=== PATIENT | male | born 1980 | race American Indian/Alaskan Native ===

== ENCOUNTER 2016-09-03 20:11 | Emergency (ER) | payer MEDICAID ==
--- NOTE | 2016-09-04 02:32 | Emergency Department Report ---
HPI - General Chief Complaint: Upper Respiratory Infection Time Seen by Provider: 09/04/16 01:56 - HPI HPI: Patient complaining of nonproductive cough times one month. He reports that these have been drainage in the back of his throat, nasal congestion and sinus pressure. Patient has a history of high blood pressure but he said he doesn't remember what his blood pressure medication but he takes it every day and he does not need a refill. Denies any fever, chest pain or shortness of breath. Denies any nausea or vomiting. Denies any sore throat. Reports that his ears feel clogged. No Feen-tcd-iwbykgl medication taken. ED Past Medical Hx - Past Medical History Previous Medical History?: Yes Hx Hypertension: Yes Hx Diabetes: Yes Additional medical history: LT arm fx - Surgical History Past Surgical History?: No - Family History Family history: hypertension - Social History Smoking Status: Current Every Day Smoker Substance Use Type: None - Medications Home Medications: Home Medications Medication Instructions Recorded Confirmed Last Taken Type Amoxicillin/K Clav Tab [Augmentin 1 tab PO Q12HR #20 tab 09/04/16 Unknown Rx 875 mg] Cetirizine HCl [ZyrTEC] 10 mg PO QAM #14 capsule 09/04/16 Unknown Rx Fluticasone [Flonase] 1 spray NS QDAY #1 bottle 09/04/16 Unknown Rx guaiFENesin/CODEINE [Robitussin AC] 10 ml PO QHS PRN #70 ml 09/04/16 Unknown Rx predniSONE [Deltasone] 50 mg PO QDAY #3 tab 09/04/16 Unknown Rx ED Review of Systems ROS: Stated complaint: COUGH Other details as noted in HPI Comment: All other systems reviewed and negative Constitutional: denies: chills, fever ENT: congestion. denies: ear pain, throat pain Respiratory: cough. denies: shortness of breath, SOB with exertion, SOB at rest , stridor, wheezing Cardiovascular: denies: chest pain, palpitations, edema, syncope Gastrointestinal: denies: abdominal pain, nausea, vomiting Musculoskeletal: denies: back pain, arthralgia, myalgia Skin: denies: rash Neurological: denies: headache, weakness, numbness, paresthesias, confusion, abnormal gait, vertigo Physical Exam - Physical Exam Vital Signs: Vital Signs 09/03/16 20:33 Temperature 98.6 F Pulse Rate 90 Respiratory 18 Rate Blood Pressure 128/80 O2 Sat by Pulse 100 Oximetry General: This is a 35-year-old male well-nourished well-developed in no acute distress and nontoxic in appearance. Physical Exam: Head: Normocephalic atraumatic Mouth: Moist, no pharyngeal exudate or erythema. Uvula is midline and oral airway is patent. No gingival enlargement or dental tenderness. No facial swelling. No peritonsillar abscesses. Neck: Supple, no C-spine tenderness, no tracheal deviation. Nontender to palpate. no adenopathy Ears: Bilateral TMs congested without erythema .bilateral EAC without any redness swelling or drainage Eyes: Bilateral pupils equal and reactive to light, bilateral EOM intact. Bilateral sclera and conjunctiva without injection. Normal accommodation Nose: Mucosa moist, positive congestion and erythema. Positive clear drainage. maxillary sinus tender to palpate. Lungs: clear to auscultate bilaterally no rhonchi wheezes or rales. Normal work of breathing . Dry cough extremity; No CCE. +2 pulses. No neurovascular compromise Cardiovascular: S1-S2, regular rate rhythm. No murmurs. Skin: clean Dry and intact no rash no lesions Psych: Normal mood and behavior ED Course Vital Signs 09/03/16 20:33 Temperature 98.6 F Pulse Rate 90 Respiratory 18 Rate Blood Pressure 128/80 O2 Sat by Pulse 100 Oximetry - Reevaluation(s) Reevaluation #1: 09/04/16 03:33 Patient stable throughout ED stay. ED Medical Decision Making - Radiology Data Radiology results: report reviewed Chest x-ray revealed no acute cardiopulmonary findings. - Medical Decision Making ED course: Patient with acute sinusitis and cough. I discussed the patient diagnosis and treatment plan and he voiced understanding. Pt discharged home to follow-up with his primary care physician in 2-3 days. I discussed with him that his chest x-ray results was negative for any acute findings. A shunt discharged home with prescription for prednisone, Flonase, Zyrtec, Augmentin and guaifenesin with codeine. Critical care attestation.: If time is entered above; I have spent that time in minutes in the direct care of this critically ill patient, excluding procedure time. ED Disposition Clinical Impression: Cough Acute sinusitis Qualifiers: Sinusitis location: maxillary Recurrence: not specified as recurrent Qualified Code(s): J01.00 - Acute maxillary sinusitis, unspecified Disposition: DISCHARGED TO HOME OR SELFCARE Is pt being admited?: No Does the pt Need Aspirin: No Condition: Stable Instructions: Acute Cough (ED), Sinusitis (ED) Additional Instructions: Please take medication as prescribed. Primary care physician in 3-[address] or operate heavy machinery while taking cough medicine. Prescriptions: guaiFENesin/CODEINE [Robitussin AC] 10 ml PO QHS PRN #70 ml PRN Reason: Cough Amoxicillin/K Clav Tab [Augmentin 875 mg] 1 tab PO Q12HR #20 tab Cetirizine HCl [ZyrTEC] 10 mg PO QAM #14 capsule Fluticasone [Flonase] 1 spray NS QDAY #1 bottle predniSONE [Deltasone] 50 mg PO QDAY #3 tab Referrals: PRIMARY CARE, [Primary Care Provider] - 2-3 Days Forms: Work/School Release Form(ED)
--- NOTE | 2016-09-04 03:12 | XRay Report ---
FINAL REPORT PROCEDURE: XR CHEST ROUTINE 2V TECHNIQUE: PA and lateral chest radiographs were obtained. CPT 10748 HISTORY: Upper Respiratory Infection COMPARISON: No prior studies are available for comparison. FINDINGS: Heart: Normal. Mediastinum/Vessels: Normal. Lungs/Pleural space: Normal. Bony thorax: No acute osseous abnormality. Other: IMPRESSION: There is no evidence of an acute cardiopulmonary process.
[2016-09-04 03:54] VITALS: BP 135/86
== END 2016-09-04 03:54 | disposition home or self-care (01) ==
LOC: ED 20:11
DX: J01.00 Acute maxillary sinusitis, unspecified (principal); R05 Cough; I10 Essential (primary) hypertension; E11.9 Type 2 diabetes mellitus without complications; F17.200 Nicotine dependence, unspecified, uncomplicated
CPT/HCPCS: 71020; 99283